=== PATIENT | female | born 1965 | race Caucasian/White ===

== ENCOUNTER 2019-06-13 13:32 | Emergency (ER) | payer OTHER, SELFPAY ==
[2019-06-13] VITALS (7 sets, daily range): BP systolic 104–158; BP diastolic 74–92; PULSE 55–87; RESP 18–20; TEMP 36.5–37.2; O2SAT 94–100
--- NOTE | ~2019-06-13 | XR_ITS ---
EXAMINATION: XR chest 2V DATE: 06/13/2019 14:45 INDICATION: Mid chest pain. TECHNIQUE: Frontal and lateral views of the chest were obtained. COMPARISON: None. FINDINGS: The chest demonstrates clear lungs without pneumonia, pleural effusion, or pneumothorax. Th e heart size is normal. IMPRESSION: 1. No acute cardiopulmonary disease. Reviewed, dictated and finalized at location A. [employer] ARCHITECT
--- NOTE | 2019-06-13 13:59 | ED.CHESTPAIN ---
HPI - Chest Pain General Chief Complaint: Chest Pain Stated Complaint: Chest Tightness Time Seen by Provider: 06/13/19 13:49 Source: patient and RN notes reviewed Mode of arrival: ambulatory Limitations: no limitations History of Present Illness HPI narrative: Pt is a 53 y/o female with a Hx of HTN, who presents to the ED with c/o worsening substernal chest pain starting this morning. She notes that she has been under increased stress recently with her daughter moving home from college. Pt states that she is concerned about her daughter's well-being, which makes her anxious. She notes that she woke up early this morning with pain in her upper back. Pt states that she took Ibuprofen for her pain. She notes that she later developed tightness in her substernal chest. Pt reports diaphoresis as of earlier as well as tingling in her bilateral hands, but denies any shoulder pain, jaw pain, neck pain, nausea, or SOB. She notes that her pain doesn't feel similar to acid reflux. Pt states that she hasn't had any recent long travel. Pt denies having any significant cardiac Hx. MD complaint: chest pain Onset (ago): hour(s) (several) Timing of current episode: increasing Pain location: substernal Pain radiation: none Quality: tightness Context: other (recent stress with daughter returning from college) Associated symptoms: diaphoresis and other (anxiety; tingling in bilateral hands; upper back pain) Related Data Home Medications Medication Instructions Recorded Confirmed amlodipine 5 mg-valsartan 160 1 tablet PO DAILY 04/21/19 mg-hydrochlorothiazide 12.5 mg tablet Allergies Allergy/AdvReac Type Severity Reaction Status Date / Time ciprofloxacin Allergy Unknown Skin Verified 04/27/19 11:48 Reaction Review of Systems Review of Systems: Narrative: CONSTITUTIONAL: Denies fever or chills. Reports diaphoresis. CARDIOVASCULAR: Denies palpitations or edema. Reports substernal chest pain. RESPIRATORY: Denies cough or dyspnea. GASTROINTESTINAL: Denies abdominal pain, nausea, vomiting, or diarrhea. MUSCULOSKELETAL: Reports upper back pain. Denies jaw pain, shoulder pain, neck pain, or myalgia. NEUROLOGIC: Denies headache or weakness. Reports tingling in bilateral hands. PSYCHIATRIC: Reports anxiety. All systems reviewed & are unremarkable except as noted in HPI and below PMFSH Past Medical History Medical History (Updated 06/13/19 @ 15:29 by Lani Durbin MD) Essential (primary) hypertension Miscarriage Mixed hyperlipidemia Surgical History Surgical History No significant past surgical history Family History Family History (Updated 11/23/17 @ 12:24 by DOCTOR UNKNOWN) Sibling Diabetes mellitus Hypertension Family history of elevated blood lipids Family history of lung cancer Family history of coronary artery disease Family history of malignant neoplasm of kidney Family history of cardiovascular disease Mother Hypertension Family history of elevated blood lipids Carcinoma of colon Family history of coronary artery disease Family history of cardiovascular disease Father Cerebrovascular accident Social History Social History Smoking status: Never smoker Alcohol intake: current Gender identity (if verbalized by the patient): Female Exam Narrative: Exam Narrative: GENERAL: Anxious appearing, well-nourished, and in no acute distress. HEAD: Normocephalic, atraumatic. EYES: PERRLA and EOMI. ENT: Nares clear, no rhinorrhea or epistaxis. Mucous membranes moist. NECK: Supple. CHEST: Clear to auscultation. No respiratory distress. No chest wall tenderness. HEART: Regular rate and rhythm. No murmur heard. Normal peripheral pulses. ABDOMEN: Soft, nontender, nondistended, normal active bowel sounds. EXTREMITIES: Normal range of motion. No edema. SKIN: Warm, dry, no rash. NEURO: No focal deficits. Alert and
--- NOTE | 2019-06-13 14:05 | ECG_ITS ---
Measurements Intervals [place] Rate: 94 P: 37 KS: 172 QRS: 43 QRSD: 81 T: 0 QT: 355 QTc: 445 Interpretive Statements SINUS RHYTHM ST-T WAVE ABNORMALITY IN ANTEROLATERAL LEADS- CONSIDER ISCHEMIA BASELINE ARTIFACT- V3 ABNORMAL ECG Electronically Signed On 06-14-2019 13:40:14 CHICKEN CATCHER by Dwight Crow D.O.
[2019-06-13 14:40] LABS: Basophils Absolute Auto 0.1 K/mm3 (0.0-0.1); Basophils Percent Auto 0.8 % (0.2-1.2); Eosinophils Absolute Auto 0.1 K/mm3 (0-0.3); Eosinophils Percent Auto 1.6 % (0-4.4); Hematocrit 41.1 % (37.0-47.0); Hemoglobin 14.2 g/dL (12.0-15.0); Immature Granulocyte Absolute 0.05 K/mm3 (0.00-0.031); Immature Granulocyte Percent A 0.6 % (0-0.5); Lymphocytes Absolute Auto 2.08 K/mm3 (0.9-3.2); Lymphocytes Percent Auto 26.1 % (18.3-44.2); Mean Corpuscular HGB Conc 34.5 g/dl (32-36); Mean Corpuscular Hemoglobin 31.8 pg (26-34); Mean Corpuscular Volume 92.2 fl (80-100); Mean Platelet Volume 9.4 fl (7.4-10.4); Monocytes Absolute Auto 0.5 K/mm3 (0.1-0.6); Monocytes Percent Auto 6.8 % (2.6-8.5); Neutrophils Absolute Auto 5.1 K/mm3 (1.3-6.7); Neutrophils Percent Auto 64.1 % (45.5-73.1); Platelet Count Result 351 k/mm3 (150-375); Red Blood Count 4.46 M/mm3 (4.2-5.4); Red Cell Distribution Width 11.4 % (11.5-14.5)
[2019-06-13 14:52] LABS: INR 0.9; Prothrombin Time 11.8 Seconds (11.1-14.7)
[2019-06-13 14:53] LABS: Alanine Aminotransferase 26 U/L (4-35); Albumin Level 5.1 g/dL (3.5-5.1); Alkaline Phosphatase 78 U/L (38-126); Aspartate Amino Transferase 32 U/L (14-36); Bilirubin,Total 1.5 mg/dL (0.2-1.3); Blood Urea Nitrogen 12 mg/dL (7-17); Calcium 10.2 mg/dL (8.4-10.2); Carbon Dioxide 27 mmol/L (22-30); Chloride 93 mmol/L (98-107); Estimated CRCL calculation 78 ml/min; Estimated Glomerular Filt Rate > 60; Glucose 114 mg/dL (65-105); Lipase 152 U/L (23-300); Partial Thromboplastin Time 34.8 SECONDS (22.3-36.8); Potassium 3.1 mmol/L (3.4-5.0); Sodium 133 mmol/L (137-145)
[2019-06-13 15:05] LABS: Troponin I < 0.012 ng/mL (0.000-0.034)
[2019-06-13] MEDS: ASPIRIN 81 MG CHEWABLE TABLET 324 MG PO (15:21)
[2019-06-13 17:29] LABS: Troponin I < 0.012 ng/mL (0.000-0.034)
--- NOTE | 2019-06-13 18:38 | ECG_ITS ---
Measurements Intervals [place] Rate: 76 P: 7 CT: 164 QRS: 15 QRSD: 81 T: 12 QT: 384 QTc: 434 Interpretive Statements SINUS RHYTHM NORMAL ECG Electronically Signed On 06-14-2019 15:58:28 MANAGER OF BUSINESS OPERATIONS by Dwight Crow D.O.
== END 2019-06-13 19:33 | disposition home or self-care (01) ==
PROVIDERS: Emergency Medicine; Emergency Provider Emergency Medicine
DX: R07.2 Precordial pain (principal); I10 Essential (primary) hypertension; E78.2 Mixed hyperlipidemia; R94.31 Abnormal electrocardiogram [ECG] [EKG]
CPT/HCPCS: 36415; 71046; 80053; 83690; 84484; 85025; 85610; 85730; 93005; 99284; A9270

== ENCOUNTER 2022-11-19 08:26 | Outpatient (CLI) | payer OTHER, SELFPAY ==
[2022-11-19 19:17] LABS: Alanine Aminotransferase 22 U/L (6-35); Albumin Level 4.7 g/dL (3.5-5.1); Alkaline Phosphatase 57 U/L (38-126); Anion Gap 5 mmol/L (8-16); Aspartate Amino Transferase 33 U/L (14-36); Bilirubin,Total 1.3 mg/dL (0.2-1.3); Blood Urea Nitrogen 13 mg/dL (7-17); Calcium 9.5 mg/dL (8.4-10.2); Carbon Dioxide 32 mmol/L (22-30); Chloride 100 mmol/L (98-107); Cholesterol 218 mg/dL (0-200); Estimated Glomerular Filt Rate > 60; Glucose 102 mg/dL (65-110); HDL Direct 64 mg/dL; Sodium 137 mmol/L (137-145); Triglycerides 158 mg/dL (<150)
[2022-11-19 19:25] LABS: Vitamin D 25 Hydroxy 42.2 ng/mL
[2022-11-19 19:28] LABS: LDL Cholesterol Direct 105 mg/dL
[2022-11-19 19:46] LABS: Hematocrit 41.1 % (37.0-47.0); Hemoglobin 13.8 g/dL (12.0-15.0); Mean Corpuscular HGB Conc 33.6 g/dl (32-36); Mean Corpuscular Hemoglobin 32.4 pg (26-34); Mean Corpuscular Volume 96.5 fl (80-100); Mean Platelet Volume 10.5 fl (7.4-10.4); Platelet Count Result 282 k/mm3 (150-375); Red Blood Count 4.26 M/mm3 (4.2-5.4); Red Cell Distribution Width 11.6 % (11.5-14.5); White Blood Count 6.1 K/mm3 (4.5-10.0)
[2022-11-19 21:10] LABS: Hemoglobin A1C 5.5 % (<5.7)
== END 2022-11-19 08:27 | disposition home or self-care (01) ==
LOC: ANHGOSHLAB 08:27
PROVIDERS: PCP Family Medicine; Visit Provider Family Medicine
DX: Z13.6 Encounter for screening for cardiovascular disorders (principal); E78.2 Mixed hyperlipidemia; Z13.21 Encounter for screening for nutritional disorder; R73.02 Impaired glucose tolerance (oral); Z13.29 Encounter for screening for other suspected endocrine disorder
CPT/HCPCS: 36415; 80053; 80061; 82306; 83036; 84443; 85027

== ENCOUNTER 2023-07-08 09:47 | Outpatient (CLI) | payer OTHER, SELFPAY ==
[2023-07-08 19:10] LABS: Alanine Aminotransferase 22 U/L (6-35); Albumin Level 4.6 g/dL (3.5-5.1); Alkaline Phosphatase 65 U/L (38-126); Anion Gap 7 mmol/L (8-16); Aspartate Amino Transferase 53 U/L (14-36); Bilirubin,Total 0.8 mg/dL (0.2-1.3); Blood Urea Nitrogen 14 mg/dL (7-17); Calcium 9.8 mg/dL (8.4-10.2); Carbon Dioxide 29 mmol/L (22-30); Chloride 101 mmol/L (98-107); Cholesterol 218 mg/dL (0-200); Estimated Glomerular Filt Rate > 60; Glucose 85 mg/dL (65-110); HDL Direct 68 mg/dL; Sodium 137 mmol/L (137-145); Triglycerides 95 mg/dL (<150)
[2023-07-08 19:20] LABS: LDL Cholesterol Direct 109 mg/dL
== END 2023-07-08 09:48 | disposition home or self-care (01) ==
LOC: ANHGOSHLAB 09:49
PROVIDERS: PCP Family Medicine; Visit Provider Family Medicine
DX: E66.3 Overweight (principal); E78.2 Mixed hyperlipidemia; I10 Essential (primary) hypertension; Z79.899 Other long term (current) drug therapy
CPT/HCPCS: 36415; 80053; 80061

== ENCOUNTER 2024-08-10 10:09 | Outpatient (CLI) | payer OTHER, SELFPAY ==
--- OUTSIDE RECORDS SUMMARY | 2024-08-10 11:10 | XMS_ITS | Clinical Summary ---
Author Organization [facility] Address [address] [place] [address] Care Team Providers Care Fireman Name Role Phone Unavailable Primary Care Provider Unavailabl e Source Comments [facility],non-owned Affiliates and Associated Physician Practices is amultiple site organization consisting of ambulatory clinics and hospital sitesin [place], [place], [place] and [place]. This disclosure is being madepursuant to the Care Everywhere program and may not contain all information available regarding this patient. Last updated 18.[facility] BackType Social History Tobacco Use Types Packs/Day Years Used Date Smoking Tobacco: Never Assessed Sex and Gender Information Value Date Recorded Sex Assigned at Female 01/06/2022 6:17 AM CDT Gender Identity Female 01/06/2022 6:17 AM CDT Sexual Orientation Not on file Plan of Treatment Health Maintenance Due Date Last Done Comments COLOGUARD (AGES 45-75) - COL ON CA SCREENING 1965 COLON MONITORING 1965 COLONOSCOPY - COLON CA SCREENING 1965 CT COLONOGRAPHY - COLON CA SCREENING 1965 Colorectal Cancer Screening 1965 FIT - COLON CA SCREENING 1965 FLEX SIG - COLON CA SCREENING 1965 LIPID TESTING 1965 MAMMOGRAM 1965 PAP SMEAR 1965 HIV SCREENING 1980 HEPATITIS C SCREENING 06/21/1983 DTAP/TDAP/TD VACCINES (1 - Tdap) 1984 HEPATITIS B VACCINE (1 of 3 - 19+ 3-dose series) 1984 PNEUMOCOCCAL VACCINE 50+ (1 of 1 - PCV) 2015 ZOSTER VACCINE (1 of 2) 2015 COVID-19 VACCINE (2023-2 5 season) 2024 INFLUENZA VACCINE (#1) 2024 DEPRESSION SCREENING 05/17/2024 HIB VACCINE Aged Out No longer eligi ble based on patient's age to complete this topic HPV VACCINE Aged Out No longer eligi ble based on patient's age to complete this topic MENINGOCOCCAL (Group B) VACC INE SHARED DECISION-MAKING Aged Out No longer eligibl e based on patient's age to complete this topic MENINGOCOCCAL GROUPS A/C/Y/W VACCINE Aged Out No longer eligible b ased on patient's age to complete this topic
--- OUTSIDE RECORDS SUMMARY | 2024-08-10 11:11 | XMS_ITS | Referral Summary ---
Author Organization [facility] Address [address] [place] [address] Care Team Providers Care Fish Butcher Name Role Phone Toya Malik DO Primary Care Provider [phone] Encounters Date Type Department Care Team Description 06/02/2024 10:15 AM METAL GRINDER - 06/02/2024 11:59 PM METAL GRINDER Hospital Encounter [facility] Breast Imaging [facility] ([facility]) [address] [place] [id number] Screening mammogram, encounter for Discharge Disposition: Discharge to home or self care from Last 3 Months Allergies Active Allergy Reactions Criticality Noted Date Comments Ciprofloxacin Rash Reaction: Rash, Medications amLODIPine-valsa rtan-hcthiazid 5-160-12.5 mg tablet daily 07/21/2017 Active metoprolol XL (TOPROL-XL) 25 mg 24 hr tablet 25 mg daily 06/14/2017 A ctive atorvastatin (LIPITOR) 20 mg tablet 20 mg daily 09/12/2019 Active Active Problems Problem Noted Date Diagnosed Date Knee pain 05/24/2017 Social History Tobacco Use Types Packs/Day Years Used Date Smoking Tobacco: Never Smokeless Tobacco: Never Alcohol Use Standard Drinks/Week Comments Yes 0 (1 standard drink = 0.6 oz pur e alcohol) Comments Unknown Sex and Gender Information Value Date Recorded Sex Assigned at Not on file Legal Sex Female 12:15 AM METAL GRINDER Gender Identity Not on file Sexual Orientation Not on file Last Filed Vital Signs Vital Sign Reading Time Taken Comments Blood Pressure 137/86 11/08/2019 10:54 AM CDT Pulse 89 11/08/2019 10:51 AM CDT Temperature 37 C (98.6 F) 11/08/2019 10:51 AM CDT Respiratory Rate - - Oxygen Saturation 97% 11/08/2019 10: 51 AM CDT Inhaled Oxygen Concentration - - Weight 82.9 kg (182 lb 12.8 oz) 020 10:51 AM CDT Height 170.2 cm (5' 7 ) 11/08/2019 10:5 1 AM CDT Body Mass Index 28.63 11/08/2019 10:51 AM CDT Plan of Treatment Not on file Procedures Procedure Name Priority Date/Time Associated Diagnosis Comments SCREENING MAMMOGRAM BILATERAL W [place] Schedule Routine, Read Routine (OP Routine) 06/02/2024 11:02 AM METAL GRINDER Screening mammogram, encounter for from Last 3 Months Results * Screening Mammogram Bilateral W [place] (06/02/2024 11:02 AM METAL GRINDER) Anatomical Region Laterality Modality Breast Bilateral Mammography Narrative 06/05/2024 12:34 PM METAL GRINDER Mammogram Technique: Bilateral Digital Breast Tomosynthesis, Bilateral C-view 2D Screening mammogram. Views obtained: bilateral craniocaudal and bilateral mediolateral oblique. Computer Aided Detection was performed. Mammogram Findings: The present examination has been compared to prior imaging studies performed at [facility] on 12/30/2017, 08/27/2020, 12/23/2021 and 03/22/2023. There are scattered areas of fibroglandular density. There is no suspicious abnormality in either breast. Impression: There is no mammographic evidence of malignancy. Annual screening mammography is recommended. OVERALL FINAL ASSESSMENT: BI-RADS CATEGORY 1: Negative. Procedure Note Cinthya Philip MD - 06/05/2024 Mammogram Technique: Bilateral Digital Breast Tomosynthesis, Bilateral C-view 2D Screening mammogram. Views obtained: bilateral craniocaudal and bilateral mediolateral oblique. Computer Aided Detection was performed. Mammogram Findings: The present examination has been compared to prior imaging studies performed at [facility] on 12/30/2017, 08/27/2020,12/23/2021 and 03/22/2023. There are scattered areas of fibroglandular density. There is no suspicious abnormality in either breast. Impression: There is no mammographic evidence of malignancy. Annual screening mammography is recommended. OVERALL FINAL ASSESSMENT: BI-RADS CATEGORY 1: Negative. us Self Screening Mammogram IMG MAMMO PROCEDURES Fi nal Result from Last 3 Months Insurance [facility] [employer] Address: [facility] [address] [place] [address] Care Teams Fish Butcher Relationship Specialty Start Date End Date Toya Malik DO PCP - General Family Medicine 11/08/19
--- OUTSIDE RECORDS SUMMARY | 2024-08-10 11:11 | XMS_ITS | Clinical Summary ---
Author Organization [facility] Address [address] [place] [address] Care Team Providers Care Rf Microwave Engineer Name Role Phone Toya Malik DO Primary Care Provider [phone]- [phone] Allergies Active Allergy Reactions Criticality Noted Date Comments Ciprofloxacin Rash Reaction: Rash, Medications amLODIPine-valsa rtan-hcthiazid 5-160-12.5 mg tablet daily 07/21/2017 Active metoprolol XL (TOPROL-XL) 25 mg 24 hr tablet 25 mg daily 06/14/2017 A ctive atorvastatin (LIPITOR) 20 mg tablet 20 mg daily 09/12/2019 Active Active Problems Problem Noted Date Diagnosed Date Knee pain 05/24/2017 Encounters Date Type Department Care Team Description 06/02/2024 10:15 AM DEVELOPER RELATIONS MANAGER - 06/02/2024 11:59 PM [facility] Hospital Encounter [facility] ([facility]) [address] [place] [phone] Screening mammogram, encounter for Discharge Disposition: Discharge to home or self care from Last 3 Months Surgical History Surgery Date Site/Laterality Comments OTHER SURGICAL HISTORY D&C Medical History Medical History Date Comments Hypertension High cholesterol Family History Medical History Relation Name Comments Hypertension Father Family history of hypertension - (Added by TW Conv) Stroke Father Family history of cerebrovascular accident (CVA) - (Added by TW Conv) Cancer Mother Family history of malignant neoplasm - (Added by TW Conv) Colon cancer Mother Cancer, colon; Cause of : Cancer, colon Heart disease Mother Family history of cardiac disorder - (Added by TW Conv) Hypertension Mother Family history of hypertension - (Added by TW Conv) Other Sister 2 Colon polyps, p recancerous; Relation Name Status Comments Father Mother Sister 1 Alive Sister 2 Social History Tobacco Use Types Packs/Day Years Used Date Smoking Tobacco: Never Smokeless Tobacco: Never Alcohol Use Standard Drinks/Week Comments Yes 0 (1 standard drink = 0.6 oz pur e alcohol) Comments Unknown Sex and Gender Information Value Date Recorded Sex Assigned at Not on file Legal Sex Female 12:15 AM DEVELOPER RELATIONS MANAGER Gender Identity Not on file Sexual Orientation Not on file Obstetrics History Last Filed Vital Signs Vital Sign Reading [...] 11/08/2019 10:51 AM CDT Plan of Treatment Health Maintenance Due Date Last Done Comments Cervical Cancer Screening 1965 Colon Cancer Screening-Colonoscopy 1965 Depression Screening 1965 Hepatitis C Screening 1965 DTaP/Tdap/Td Vaccine (1 - Tdap) 1976 Hepatitis B Screening 1983 Regular Well Visit/Exam 18-64 1983 Zoster Vaccine (1 of 2) 2015 Covid-19 Vaccine (2023- season) 2024 04/02/2021, 06/28/2020, 06/07/2020 Influenza Vaccine (#1) 2024 Breast Cancer Screening-Mammogram 06/02/2025 06/02/2024, 03/22/2023, 12/23/2021, Additional history exists Pneumococcal vaccine <65 Aged Out No longer eligible based on patient's age to complete this topic Procedures Procedure Name Priority Date/Time Associated Diagnosis Comments SCREENING MAMMOGRAM BILATERAL W [place] Schedule Routine, Read Routine (OP Routine) 06/02/2024 11:02 AM DEVELOPER RELATIONS MANAGER Screening mammogram, encounter for from Last 3 Months Results * Screening Mammogram Bilateral W [place] (06/02/2024 11:02 AM DEVELOPER RELATIONS MANAGER) Anatomical Region Laterality Modality Breast Bilateral Mammography Narrative 06/05/2024 12:34 PM DEVELOPER RELATIONS MANAGER Mammogram Technique: Bilateral Digital Breast Tomosynthesis, Bilateral C-view 2D Screening mammogram. Views obtained: bilateral craniocaudal and bilateral mediolateral oblique. Computer Aided Detection was performed. Mammogram Findings: The present examination has been compared to prior imaging studies performed at [facility] on 12/30/2017, 08/27/2020, 12/23/2021 and 03/22/2023. There [...] compared to prior imaging studies performed at [facility] on 12/30/2017, 08/27/2020,12/23/2021 and 03/22/2023. There are scattered areas of fibroglandular density. There is no suspicious abnormality in either breast. Impression: There is no mammographic evidence of malignancy. Annual screening mammography is recommended. OVERALL FINAL ASSESSMENT: BI-RADS CATEGORY 1: Negative. us Self Screening Mammogram IMG MAMMO PROCEDURES Fi nal Result from Last 3 Months Insurance [facility] Address: [address] [place] [address] [employer] Address: [address] [place] [address] [employer] Address: [address] [place] [address] Care Teams Rf Microwave Engineer Relationship Specialty Start Date End Date Toya Malik DO PCP - General Family Medicine 11/08/19
[2024-08-10 19:29] LABS: Hemoglobin 13.6 g/dL (12.0-15.0); Mean Corpuscular HGB Conc 34.9 g/dl (32-36); Mean Corpuscular Hemoglobin 33.6 pg (26-34); Mean Corpuscular Volume 96.3 fl (80-100); Mean Platelet Volume 10.4 fl (7.4-10.4); Platelet Count Result 292 k/mm3 (150-375); Red Blood Count 4.05 M/mm3 (4.2-5.4); Red Cell Distribution Width 11.7 % (11.5-14.5)
[2024-08-10 19:44] LABS: Alanine Aminotransferase 22 U/L (6-35); Albumin Level 4.7 g/dL (3.5-5.1); Alkaline Phosphatase 67 U/L (38-126); Anion Gap 10 mmol/L (4-12); Aspartate Amino Transferase 32 U/L (14-36); Blood Urea Nitrogen 11 mg/dL (7-17); Calcium 9.9 mg/dL (8.4-10.2); Carbon Dioxide 29 mmol/L (22-30); Chloride 99 mmol/L (98-107); Cholesterol 205 mg/dL (0-200); Estimated Glomerular Filt Rate > 60; Glucose 101 mg/dL (65-110); HDL Direct 71 mg/dL; Potassium 4.5 mmol/L (3.4-5.0); Sodium 138 mmol/L (137-145); Triglycerides 145 mg/dL (<150)
[2024-08-10 19:55] LABS: LDL Cholesterol Direct 93 mg/dL
== END 2024-08-10 10:10 | disposition home or self-care (01) ==
LOC: ANHGOSHLAB 10:10
PROVIDERS: PCP Family Medicine; Visit Provider Family Medicine
DX: E78.2 Mixed hyperlipidemia (principal); I10 Essential (primary) hypertension; E66.3 Overweight; Z79.899 Other long term (current) drug therapy
CPT/HCPCS: 36415; 80053; 80061; 84443; 85027